=== PATIENT | female | born 1975 | race Caucasian/White ===

== ENCOUNTER 2021-03-20 15:44 | Emergency (ER) | payer MEDICAID ==
[~2021-03-20] VITALS: Ht 152.4 cm; Wt 85.7 kg
[2021-03-20] MEDS ORDERED: TOPI50TA PO (16:35)
[2021-03-20] MEDS ORDERED: VENL75 PO (16:35)
[2021-03-20 16:44] VITALS: BP 120/87
== END 2021-03-20 16:50 | disposition home or self-care (01) ==
LOC: EDH 15:44
DX: F31.9 Bipolar disorder, unspecified (principal); F41.9 Anxiety disorder, unspecified; Z76.0 Encounter for issue of repeat prescription; Z90.89 Acquired absence of other organs; Z98.890 Other specified postprocedural states